=== PATIENT | female | born 1935 | race Caucasian/White ===

== ENCOUNTER → 2017-02-04 | Outpatient (CLI) | payer MEDICARE, OTHER ==
[~2017-02-04] MED LIST: /ESOM40CA PO; /ROPI1TA PO; /WARF25TA OR; ACETAMINOPHEN PO; CALCIUM PO; COUM1TAB17 PO; CRES5TAB PO; FERR325T PO; FISH1000 PO; FISH300C2 PO; FURO40TA2 PO; IRON28TA PO; LEVO100T PO; LOPR50TA PO; OXYC1TAB23 PO; OXYC1TAB30 PO; PERC7.5T8 OR; TYLENOL ES; VALS80CA PO; VITA-113 PO; VITA100027 PO; Vitamin D3 PO; [UNRECOGNIZED DRUG - OTHER] PO
--- NOTE | 2017-02-04 14:02 | REP ---
BILATERAL DIGITAL SCREENING MAMMOGRAM: 02/04/2017 COMPARISON: 02/04/2016, 12/13/2014, 12/11/2013. CLINICAL HISTORY: Screening examination. Patient with prior right breast lumpectomy, radiation and chemotherapy. There is a moderate amount of residual fibroglandular tissue remaining which may reduce the sensitivity of mammography. There are post surgical changes in the upper outer quadrant of the right breast. There is some skin thickening anteriorly. These findings are unchanged. There are some scattered benign calcifications and arterial calcifications in each breast. No dominant masses, suspicious cluster of microcalcifications or secondary signs of malignancy are seen. Surgical clips are seen in the right axilla along with the some axillary and right upper outer quadrant scarring; all of this is stable. IMPRESSION: 1. BIRADS ACR category 2, benign. Benign findings. Stable examination. No evidence of malignancy. No new findings. 2. Recommend followup mammography 1 year. This mammogram was interpreted with the aid of an FDA-approved computer-aided detection system. A. Negative x-ray reports should not delay biopsy if a dominant or clinically suspicious mass is present. B. Four to eight percent of cancers are not identified by x-ray. C. Adenosis and dense breasts may obscure an underlying neoplasm. The patient states she/he had a clinical breast exam in August 2016. The patient letter being requested is M1.
== END ==
LOC: M WHC 09:57
PROVIDERS: ATTEND Internal Medicine Medical Oncology
DX: Z12.31 Encounter for screening mammogram for malignant neoplasm of breast (principal); Z85.3 Personal history of malignant neoplasm of breast; Z92.3 Personal history of irradiation; Z92.21 Personal history of antineoplastic chemotherapy

== ENCOUNTER → 2017-03-23 | Outpatient (REF) | payer MEDICARE, OTHER ==
[2017-03-23 12:40] LABS: ALBUMIN 3.7 GM/DL (3.2-5.2); ALBUMIN/GLOBULIN RATIO 1.16 (1.00-1.93); BILIRUBIN,TOTAL 0.5 MG/DL (0.2-1.0); CALCIUM LEVEL 8.8 MG/DL (8.8-10.2); CREATININE FOR GFR 1.05 MG/DL (0.55-1.02); FREE T4 0.78 NG/DL (0.76-1.46); GLOMERULAR FILTRATION RATE 53.8 (>39); POTASSIUM SERUM 4.5 MEQ/L (3.5-5.1); TOTAL PROTEIN 6.9 GM/DL (6.4-8.2)
== END ==
LOC: M SFHCPLAZ 09:06
PROVIDERS: ATTEND Nurse Practitioner Family
DX: E78.2 Mixed hyperlipidemia (principal); E03.9 Hypothyroidism, unspecified; M85.80 Other specified disorders of bone density and structure, unspecified site

== ENCOUNTER → 2017-03-30 | Outpatient (REF) | payer MEDICARE, OTHER | LOC: M SFHCPLAZ 10:32 | PROVIDERS: ATTEND Nurse Practitioner Family | DX: E78.2 Mixed hyperlipidemia (principal); E03.9 Hypothyroidism, unspecified; E55.9 Vitamin D deficiency, unspecified ==

== ENCOUNTER → 2017-06-21 | Outpatient (REF) | payer MEDICARE, OTHER ==
[2017-06-21 12:29] LABS: ALBUMIN 3.8 GM/DL (3.2-5.2); ALBUMIN/GLOBULIN RATIO 1.27 (1.00-1.93); BILIRUBIN,TOTAL 0.5 MG/DL (0.2-1.0); CALCIUM LEVEL 9.2 MG/DL (8.8-10.2); CREATININE FOR GFR 1.09 MG/DL (0.55-1.02); FREE T4 0.76 NG/DL (0.76-1.46); GLOMERULAR FILTRATION RATE 51.5 (>39); POTASSIUM SERUM 4.5 MEQ/L (3.5-5.1); TOTAL PROTEIN 6.8 GM/DL (6.4-8.2)
== END ==
LOC: M SFHCPLAZ 09:36
PROVIDERS: ATTEND Nurse Practitioner Family
DX: E78.2 Mixed hyperlipidemia (principal); E03.9 Hypothyroidism, unspecified; E55.9 Vitamin D deficiency, unspecified

== ENCOUNTER → 2017-08-04 | Outpatient (REF) | payer MEDICARE, OTHER ==
[2017-08-04 12:06] LABS: FREE T4 0.56 NG/DL (0.76-1.46)
== END ==
LOC: M SFHCPLAZ 09:12
PROVIDERS: ATTEND Family Medicine
DX: E03.9 Hypothyroidism, unspecified (principal)

== ENCOUNTER → 2017-09-21 | Outpatient (REF) | payer MEDICARE, OTHER ==
[2017-09-21 12:36] LABS: MEAN CORPUSCULAR HEMOGLOBIN 30.8 pg (27.0-33.0); MEAN CORPUSCULAR HGB CONC 32.2 g/dl (32.0-36.5); MEAN CORPUSCULAR VOLUME 95.5 fl (80.0-96.0); PLATELET COUNT, AUTOMATED 129 10^3/uL (150-450); RED CELL DISTRIBUTION WIDTH 13.7 % (11.5-14.5)
[2017-09-21 12:54] LABS: FOLATE 9.4 NG/ML
[2017-09-21 13:07] LABS: ALBUMIN 4.1 GM/DL (3.2-5.2); ALBUMIN/GLOBULIN RATIO 1.24 (1.00-1.93); BILIRUBIN,TOTAL 0.5 MG/DL (0.2-1.0); CALCIUM LEVEL 9.8 MG/DL (8.8-10.2); CREATININE FOR GFR 1.05 MG/DL (0.55-1.02); GLOMERULAR FILTRATION RATE 53.7 (>32); MAGNESIUM LEVEL 2.1 MG/DL (1.8-2.4); POTASSIUM SERUM 4.3 MEQ/L (3.5-5.1); TOTAL PROTEIN 7.4 GM/DL (6.4-8.2)
[2017-09-21 13:16] LABS: FREE T4 0.71 NG/DL (0.76-1.46)
== END ==
LOC: M SFHCPLAZ 09:56
PROVIDERS: ATTEND Nurse Practitioner Family
DX: Z00.00 Encounter for general adult medical examination without abnormal findings (principal); G31.84 Mild cognitive impairment of uncertain or unknown etiology; E03.9 Hypothyroidism, unspecified; E55.9 Vitamin D deficiency, unspecified

== ENCOUNTER → 2017-10-20 | Outpatient (REF) | payer MEDICARE, OTHER ==
[2017-10-20 14:28] LABS: BASO % 0.5 % (0.0-1.0); EOS # 0.1 10^3/uL (0.0-0.50); EOS % 1.6 % (0.0-3.0); IMMATURE GRANULOCYTE % 0.4 % (0-0); LYMPH # 1.3 10^3/uL (1.5-4.5); LYMPH % 22.4 % (24.0-44.0); MEAN CORPUSCULAR HEMOGLOBIN 31.1 pg (27.0-33.0); MEAN CORPUSCULAR HGB CONC 32.7 g/dl (32.0-36.5); MEAN CORPUSCULAR VOLUME 95.1 fl (80.0-96.0); MONO # 0.4 10^3/uL (0.0-0.8); MONO % 7.4 % (0.0-5.0); NEUTROPHILS # 3.8 10^3/uL (1.8-7.7); NEUTROPHILS % 67.7 % (36.0-66.0); PLATELET COUNT, AUTOMATED 151 10^3/uL (150-450); RED CELL DISTRIBUTION WIDTH 13.8 % (11.5-14.5); WHITE BLOOD COUNT 5.6 10^3/uL (4.0-10.0)
[2017-10-20 14:34] LABS: VITAMIN B12 LEVEL 185 PG/ML
[2017-10-20 14:35] LABS: FOLATE 8.8 NG/ML
[2017-10-20 14:52] LABS: ERYTHROCYTE SEDIMENTATION RATE 44 mm/hr (0-30)
== END ==
LOC: M LABDRAW1 12:38
PROVIDERS: ATTEND Physician Assistant Medical
DX: R51 Headache (principal); R53.83 Other fatigue; R41.3 Other amnesia; Z79.899 Other long term (current) drug therapy

== ENCOUNTER → 2018-01-07 | Outpatient (REF) | payer MEDICARE, OTHER ==
[2018-01-07 13:48] LABS: HEMATOCRIT 37.7 % (36.0-47.0); HEMOGLOBIN 12.1 g/dl (12.0-16.0); MEAN CORPUSCULAR HGB CONC 32.1 g/dl (32.0-36.5); MEAN CORPUSCULAR VOLUME 93.3 fl (80.0-96.0); PLATELET COUNT, AUTOMATED 225 10^3/uL (150-450); RED BLOOD COUNT 4.04 10^6/uL (4.00-5.40); RED CELL DISTRIBUTION WIDTH 13.4 % (11.5-14.5); WHITE BLOOD COUNT 5.6 10^3/uL (4.0-10.0)
[2018-01-07 14:08] LABS: TOTAL 25(OH) VITAMIN D 15.6 NG/ML (30.0-100.0)
[2018-01-07 14:09] LABS: ALBUMIN/GLOBULIN RATIO 1.21 (1.00-1.93); ALKALINE PHOSPHATASE 86 U/L (45-117); ALT/SGPT 19 U/L (12-78); ANION GAP 6 MEQ/L (8-16); AST/SGOT 19 U/L (7-37); BILIRUBIN,TOTAL 0.4 MG/DL (0.2-1.0); BLOOD UREA NITROGEN 13 MG/DL (7-18); CALCIUM LEVEL 9.3 MG/DL (8.8-10.2); CARBON DIOXIDE LEVEL 30 MEQ/L (21-32); CHLORIDE LEVEL 106 MEQ/L (98-107); CHOLESTEROL LEVEL 284 MG/DL (<200); CHOLESTEROL RISK RATIO 6.454 (<5); CREATININE FOR GFR 1.02 MG/DL (0.55-1.30); FOLATE 7.7 NG/ML; FREE T4 0.57 NG/DL (0.76-1.46); GLOMERULAR FILTRATION RATE 55.5 (>32); GLUCOSE, FASTING 93 MG/DL (70-100); HDL CHOLESTEROL 44 MG/DL (>40); LDL CHOLESTEROL 189.6 MG/DL (<100); NON-HDL-C 240 MG/DL; POTASSIUM SERUM 4.5 MEQ/L (3.5-5.1); SODIUM LEVEL 142 MEQ/L (136-145); TOTAL PROTEIN 7.3 GM/DL (6.4-8.2); TRIGLYCERIDES LEVEL 252 MG/DL (<150); VITAMIN B12 LEVEL 225 PG/ML
== END ==
LOC: M SFHCPLAZ 10:04
DX: Z00.00 Encounter for general adult medical examination without abnormal findings (principal); E53.8 Deficiency of other specified B group vitamins; I10 Essential (primary) hypertension; E55.9 Vitamin D deficiency, unspecified; E78.2 Mixed hyperlipidemia
CPT/HCPCS: 82746

== ENCOUNTER → 2018-04-08 | Outpatient (CLI) | payer MEDICARE, OTHER | LOC: M WHC 12:57 | DX: Z12.31 Encounter for screening mammogram for malignant neoplasm of breast (principal); E03.9 Hypothyroidism, unspecified; Z78.0 Asymptomatic menopausal state; E55.9 Vitamin D deficiency, unspecified; Z85.3 Personal history of malignant neoplasm of breast; E66.9 Obesity, unspecified; Z92.3 Personal history of irradiation; Z68.34 Body mass index [BMI] 34.0-34.9, adult; Z92.21 Personal history of antineoplastic chemotherapy; Z79.810 Long term (current) use of selective estrogen receptor modulators (SERMs); Z92.0 Personal history of contraception | CPT/HCPCS: 77067; 82746 ==

== ENCOUNTER → 2018-04-08 | Outpatient (REF) | payer MEDICARE, OTHER ==
[2018-04-08 16:04] LABS: FREE T4 1.83 NG/DL (0.76-1.46); THYROID STIMULATING HORMONE 0.084 uIU/ML (0.358-3.740)
[2018-04-11 10:29] LABS: FOLATE 10.8 NG/ML; VITAMIN B12 LEVEL 200 PG/ML
== END ==
LOC: M SFHCPLAZ 09:59
DX: E03.9 Hypothyroidism, unspecified (principal); E55.9 Vitamin D deficiency, unspecified; E66.9 Obesity, unspecified; Z68.34 Body mass index [BMI] 34.0-34.9, adult
CPT/HCPCS: 82746

== ENCOUNTER → 2018-06-06 | Outpatient (REF) | payer MEDICARE, OTHER ==
[2018-06-06 12:10] LABS: HEMATOCRIT 35.1 % (36.0-47.0); HEMOGLOBIN 11.5 g/dl (12.0-15.5); MEAN CORPUSCULAR HEMOGLOBIN 29.5 pg (27.0-33.0); MEAN CORPUSCULAR HGB CONC 32.8 g/dl (32.0-36.5); PLATELET COUNT, AUTOMATED 198 10^3/uL (150-450); RED CELL DISTRIBUTION WIDTH 13.5 % (11.5-14.5); WHITE BLOOD COUNT 5.7 10^3/uL (4.0-10.0)
[2018-06-06 12:53] LABS: TOTAL 25(OH) VITAMIN D 17.8 NG/ML (30.0-100.0)
[2018-06-08 13:11] LABS: FREE T4 1.46 NG/DL (0.76-1.46); THYROID STIMULATING HORMONE 0.787 uIU/ML (0.358-3.740)
== END ==
LOC: M SFHCPLAZ 10:01
DX: E53.8 Deficiency of other specified B group vitamins (principal); E55.9 Vitamin D deficiency, unspecified; E03.9 Hypothyroidism, unspecified
CPT/HCPCS: 84443

== ENCOUNTER → 2018-08-04 | Outpatient (REF) | payer MEDICARE, OTHER ==
[2018-08-04 13:14] LABS: HEMATOCRIT 39.8 % (36.0-47.0); HEMOGLOBIN 12.8 g/dl (12.0-15.5); MEAN CORPUSCULAR HEMOGLOBIN 29.2 pg (27.0-33.0); MEAN CORPUSCULAR HGB CONC 32.2 g/dl (32.0-36.5); MEAN CORPUSCULAR VOLUME 90.9 fl (80.0-96.0); PLATELET COUNT, AUTOMATED 169 10^3/uL (150-450); RED BLOOD COUNT 4.38 10^6/uL (4.00-5.40); RED CELL DISTRIBUTION WIDTH 15.2 % (11.5-14.5); WHITE BLOOD COUNT 6.2 10^3/uL (4.0-10.0)
[2018-08-04 13:24] LABS: ANION GAP 11 MEQ/L (8-16); BLOOD UREA NITROGEN 15 MG/DL (7-18); CALCIUM LEVEL 9.9 MG/DL (8.8-10.2); CARBON DIOXIDE LEVEL 28 MEQ/L (21-32); CHLORIDE LEVEL 106 MEQ/L (98-107); CREATININE FOR GFR 1.24 MG/DL (0.55-1.30); FREE T4 0.27 NG/DL (0.76-1.46); GLOMERULAR FILTRATION RATE 44.2 (>32); GLUCOSE, FASTING 94 MG/DL (70-100); POTASSIUM SERUM 4.5 MEQ/L (3.5-5.1); SODIUM LEVEL 145 MEQ/L (136-145)
[2018-08-04 13:45] LABS: FOLATE 7.6 NG/ML
[2018-08-04 13:58] LABS: TOTAL 25(OH) VITAMIN D 17.8 NG/ML (30.0-100.0)
== END ==
LOC: M SFHCPLAZ 10:33
DX: E53.8 Deficiency of other specified B group vitamins (principal); E03.9 Hypothyroidism, unspecified; I10 Essential (primary) hypertension; E55.9 Vitamin D deficiency, unspecified
CPT/HCPCS: 82746

== ENCOUNTER → 2019-01-18 | Outpatient (REF) | payer MEDICARE, OTHER ==
[~2019-01-18] MED LIST changes: +LEVO150T7 OR; +ROPI2TAB OR; +ROSU10TA5 OR
[2019-01-18 13:16] LABS: ALT/SGPT 24 U/L (12-78); BILIRUBIN,TOTAL 0.4 MG/DL (0.2-1.0); BLOOD UREA NITROGEN 17 MG/DL (7-18); CALCIUM LEVEL 9.1 MG/DL (8.8-10.2); CARBON DIOXIDE LEVEL 28 MEQ/L (21-32); CHLORIDE LEVEL 105 MEQ/L (98-107); CREATININE FOR GFR 0.87 MG/DL (0.55-1.30); FOLATE 9.4 NG/ML; FREE T4 1.54 NG/DL (0.76-1.46); GLOMERULAR FILTRATION RATE > 60.0 (>32); GLUCOSE, FASTING 99 MG/DL (70-100); POTASSIUM SERUM 4.5 MEQ/L (3.5-5.1); SODIUM LEVEL 142 MEQ/L (136-145); TOTAL PROTEIN 7.2 GM/DL (6.4-8.2); VITAMIN B12 LEVEL 208 PG/ML
== END ==
LOC: M SFHCPLAZ 09:23
PROVIDERS: ATTEND Nurse Practitioner Family
DX: E03.9 Hypothyroidism, unspecified (principal); G31.84 Mild cognitive impairment of uncertain or unknown etiology; E55.9 Vitamin D deficiency, unspecified; E53.8 Deficiency of other specified B group vitamins; E66.9 Obesity, unspecified; Z68.39 Body mass index [BMI] 39.0-39.9, adult
CPT/HCPCS: 36415; 80053; 82306; 82607; 82746; 84439; 84443; G0463

== ENCOUNTER → 2019-04-14 | Outpatient (REF) | payer MEDICARE, OTHER ==
[~2019-04-14] MED LIST changes: -/ESOM40CA PO; -/ROPI1TA PO; -/WARF25TA OR; +COUM1TAB18 OR; +NEXI1CAP3 PO; +REQU1TAB16 PO
[2019-04-14 11:29] LABS: FREE T4 1.28 NG/DL (0.76-1.46); THYROID STIMULATING HORMONE 0.162 uIU/ML (0.358-3.740); TOTAL 25(OH) VITAMIN D 8.4 NG/ML (30.0-100.0)
== END ==
LOC: M SFHCPLAZ 09:41
PROVIDERS: ATTEND Nurse Practitioner Family
DX: E03.9 Hypothyroidism, unspecified (principal); E55.9 Vitamin D deficiency, unspecified; E53.8 Deficiency of other specified B group vitamins

== ENCOUNTER → 2019-06-06 | Outpatient (REF) | payer MEDICARE, OTHER ==
[~2019-06-06] MED LIST changes: -ROSU10TA5 OR; +ROSU10TA6 OR
[2019-06-06 12:13] LABS: CHOLESTEROL RISK RATIO 4.59 (<5); FREE T4 0.73 NG/DL (0.76-1.46); THYROID STIMULATING HORMONE 32.4 uIU/ML (0.358-3.740)
== END ==
LOC: M SFHCPLAZ 09:06
PROVIDERS: ATTEND Family Medicine
DX: E03.9 Hypothyroidism, unspecified (principal); E78.2 Mixed hyperlipidemia

== ENCOUNTER → 2019-08-01 | Outpatient (REF) | payer MEDICARE, OTHER ==
[2019-08-01 13:42] LABS: FREE T4 0.98 NG/DL (0.76-1.46); THYROID STIMULATING HORMONE 50.1 uIU/ML (0.358-3.740)
== END ==
LOC: M SFHCPLAZ 10:44
PROVIDERS: ATTEND Nurse Practitioner Family
DX: E03.9 Hypothyroidism, unspecified (principal)
CPT/HCPCS: 36415; 84439; 84443; G0463

== ENCOUNTER → 2020-03-13 | Outpatient (REF) | payer MEDICARE, OTHER ==
[~2020-03-13] MED LIST changes: -ROPI2TAB OR; +ROPI2TAB3 OR
[2020-03-13 14:20] LABS: BLOOD UREA NITROGEN 12 MG/DL (7-18); CALCIUM LEVEL 10.4 MG/DL (8.8-10.2); CARBON DIOXIDE LEVEL 29 MEQ/L (21-32); CHLORIDE LEVEL 105 MEQ/L (98-107); CREATININE FOR GFR 0.79 MG/DL (0.55-1.30); FOLATE 8.1 NG/ML; FREE T4 1.34 NG/DL (0.76-1.46); GLOMERULAR FILTRATION RATE > 60.0 (>32); GLUCOSE, FASTING 94 MG/DL (70-100); POTASSIUM SERUM 5.2 MEQ/L (3.5-5.1); SODIUM LEVEL 141 MEQ/L (136-145); TOTAL 25(OH) VITAMIN D 20.2 NG/ML (30.0-100.0); VITAMIN B12 LEVEL 184 PG/ML
== END ==
LOC: M SFHCPLAZ 10:38
PROVIDERS: ATTEND Nurse Practitioner Family
DX: E03.9 Hypothyroidism, unspecified (principal); I10 Essential (primary) hypertension; E53.8 Deficiency of other specified B group vitamins; E55.9 Vitamin D deficiency, unspecified
CPT/HCPCS: 36415; 80048; 82306; 82607; 82746; 84439; 84443; G0463

== ENCOUNTER 2020-09-01 11:16 | Emergency (ER) | payer MEDICARE, OTHER ==
[~2020-09-01] VITALS: Ht 167.6 cm; Wt 74.7 kg
[2020-09-01] MEDS ORDERED: CYCLOBENZAPRINE 5MG TABLET PO ONE (11:45)
[2020-09-01] MEDS ORDERED: ACETAMINOPHEN 500 MG TAB PO ONE (11:45)
--- NOTE | 2020-09-01 12:22 | REP ---
INDICATION: left sided neck pain COMPARISON: None. TECHNIQUE: Axial noncontrast images from the skull base to the thoracic inlet with coronal and sagittal re-formations This CT examination was performed using the following dose reduction techniques: Automated exposure control, adjustment of mA and/or kv according to the patient's size, and use of iterative reconstruction technique. FINDINGS: Marked advanced degenerative disc osteophyte complexes are identified primarily involving C4-5 through C7-T1. Diffuse facet arthropathy is also noted extending from the C2-3 level through the upper thoracic level. There is no evidence for acute fracture/compression injury or acute subluxation. Chronic canal stenosis at C4-5 is appreciated. Paravertebral soft tissues are grossly normal. IMPRESSION: Marked advanced multilevel degenerative disc osteophyte complexes. No acute fracture/compression injury or acute subluxation. <Electronically signed by Dennis Rojas > 09/01/20 [id number]
[2020-09-01] MEDS ORDERED: CYCL5TAB PO (12:59)
[2020-09-01 13:15] VITALS: BP 168/78
== END 2020-09-01 13:20 | disposition home or self-care (01) ==
LOC: M ED 11:16
DX: M54.2 Cervicalgia (principal); I10 Essential (primary) hypertension; E03.9 Hypothyroidism, unspecified; F03.90 Unspecified dementia, unspecified severity, without behavioral disturbance, psychotic disturbance, mood disturbance, and anxiety; K21.9 Gastro-esophageal reflux disease without esophagitis; G25.81 Restless legs syndrome; G25.0 Essential tremor; Z79.899 Other long term (current) drug therapy; Z79.890 Hormone replacement therapy; Z88.0 Allergy status to penicillin; Z88.1 Allergy status to other antibiotic agents; Z88.2 Allergy status to sulfonamides; Z88.5 Allergy status to narcotic agent

== ENCOUNTER → 2020-09-10 | Outpatient (REF) | payer MEDICARE, OTHER ==
[~2020-09-10] MED LIST changes: +CYCL5TAB PO
[2020-09-10 16:19] LABS: CALCIUM LEVEL 10.4 MG/DL (8.8-10.2); CREATININE FOR GFR 1.08 MG/DL (0.55-1.30); FOLATE 9.4 NG/ML; FREE T4 0.81 NG/DL (0.76-1.46); GLOMERULAR FILTRATION RATE 51.6 (>32); POTASSIUM SERUM 4.6 MEQ/L (3.5-5.1); THYROID STIMULATING HORMONE 20.8 uIU/ML (0.358-3.740); TOTAL 25(OH) VITAMIN D 21.2 NG/ML (30.0-100.0)
== END ==
LOC: M SFHCPLAZ 11:27
PROVIDERS: ATTEND Nurse Practitioner Family
DX: E03.9 Hypothyroidism, unspecified (principal); I10 Essential (primary) hypertension; E55.9 Vitamin D deficiency, unspecified; E53.8 Deficiency of other specified B group vitamins
CPT/HCPCS: 36415; 80048; 82306; 82607; 82746; 84439; 84443; G0463

== ENCOUNTER → 2021-03-11 | Outpatient (REF) | payer MEDICARE, OTHER ==
[2021-03-11 15:03] LABS: ALBUMIN 3.9 GM/DL (3.2-5.2); ALT/SGPT 42 U/L (12-78); BILIRUBIN,TOTAL 0.9 MG/DL (0.2-1.0); BLOOD UREA NITROGEN 32 MG/DL (7-18); CALCIUM LEVEL 10.7 MG/DL (8.8-10.2); CARBON DIOXIDE LEVEL 26 MEQ/L (21-32); CHLORIDE LEVEL 109 MEQ/L (98-107); CREATININE FOR GFR 1.01 MG/DL (0.55-1.30); FOLATE 9.9 NG/ML; FREE T4 > 8.00 NG/DL (0.76-1.46); GLOMERULAR FILTRATION RATE 55.7 (>32); GLUCOSE, FASTING 119 MG/DL (70-100); POTASSIUM SERUM 4.8 MEQ/L (3.5-5.1); SODIUM LEVEL 143 MEQ/L (136-145); THYROID STIMULATING HORMONE < 0.005 uIU/ML (0.358-3.740); TOTAL 25(OH) VITAMIN D 22.1 NG/ML (30.0-100.0); TOTAL PROTEIN 7.5 GM/DL (6.4-8.2); VITAMIN B12 LEVEL 191 PG/ML
== END ==
LOC: M SFHCPLAZ 11:07
PROVIDERS: ATTEND Nurse Practitioner Family
DX: E55.9 Vitamin D deficiency, unspecified (principal); I10 Essential (primary) hypertension; E03.9 Hypothyroidism, unspecified; E53.8 Deficiency of other specified B group vitamins
CPT/HCPCS: 36415; 80053; 82306; 82607; 82746; 84439; 84443; G0463

== ENCOUNTER → 2021-04-22 | Outpatient (REF) | payer MEDICARE, OTHER ==
[2021-04-22 14:50] LABS: HEMATOCRIT 34.2 % (36.0-47.0); HEMOGLOBIN 10.6 g/dl (12.0-15.5); MEAN CORPUSCULAR VOLUME 93.4 fl (80.0-96.0); PLATELET COUNT, AUTOMATED 221 10^3/uL (150-450); RED BLOOD COUNT 3.66 10^6/uL (4.00-5.40); WHITE BLOOD COUNT 5.1 10^3/uL (4.0-10.0)
[2021-04-22 15:07] LABS: FOLATE 5.6 NG/ML; FREE T4 2.14 NG/DL (0.76-1.46); THYROID STIMULATING HORMONE < 0.005 uIU/ML (0.358-3.740); VITAMIN B12 LEVEL 277 PG/ML
== END ==
LOC: M PLALAB 10:00
PROVIDERS: ATTEND Nurse Practitioner Family
DX: E53.8 Deficiency of other specified B group vitamins (principal); E03.9 Hypothyroidism, unspecified
CPT/HCPCS: 36415; 82607; 82746; 84439; 84443; 85027; 96372; J3420

== ENCOUNTER → 2021-07-08 | Outpatient (CLI) | payer MEDICARE, OTHER ==
[2021-07-08 14:32] LABS: FREE T4 1.97 NG/DL (0.76-1.46); TOTAL 25(OH) VITAMIN D 98.4 NG/ML (30.0-100.0); VITAMIN B12 LEVEL > 2000 PG/ML
== END ==
LOC: M PLALAB 09:58
PROVIDERS: ATTEND Nurse Practitioner Family
DX: E03.9 Hypothyroidism, unspecified (principal); E55.9 Vitamin D deficiency, unspecified; E53.8 Deficiency of other specified B group vitamins
CPT/HCPCS: 36415; 82306; 82607; 82746; 84439; 84443; 96372; J3420

== ENCOUNTER → 2021-09-01 | Outpatient (CLI) | payer MEDICARE, OTHER ==
[2021-09-01 17:44] LABS: FREE T4 1.36 NG/DL (0.76-1.46); THYROID STIMULATING HORMONE 1.82 uIU/ML (0.358-3.740)
== END ==
LOC: M WUC 10:30
PROVIDERS: ATTEND Nurse Practitioner Family
DX: E03.9 Hypothyroidism, unspecified (principal)

== ENCOUNTER → 2021-12-09 | Outpatient (CLI) | payer MEDICARE, OTHER ==
[2021-12-09 18:08] LABS: ALBUMIN 3.8 GM/DL (3.2-5.2); ALT/SGPT 16 U/L (12-78); BILIRUBIN,TOTAL 0.4 MG/DL (0.2-1.0); BLOOD UREA NITROGEN 13 MG/DL (7-18); CALCIUM LEVEL 9.7 MG/DL (8.8-10.2); CARBON DIOXIDE LEVEL 30 MEQ/L (21-32); CHLORIDE LEVEL 104 MEQ/L (98-107); CREATININE FOR GFR 1.13 MG/DL (0.55-1.30); FREE T4 1.17 NG/DL (0.76-1.46); GLOMERULAR FILTRATION RATE 48.8 (>32); GLUCOSE, FASTING 91 MG/DL (70-100); SODIUM LEVEL 139 MEQ/L (136-145); TOTAL PROTEIN 7.1 GM/DL (6.4-8.2)
[2021-12-09 18:10] LABS: TOTAL 25(OH) VITAMIN D 25.2 NG/ML (30.0-100.0); VITAMIN B12 LEVEL > 2000 PG/ML
[2021-12-09 18:11] LABS: FOLATE 7.4 NG/ML
== END ==
LOC: M PLALAB 14:28
PROVIDERS: ATTEND Nurse Practitioner Adult Health
DX: E03.9 Hypothyroidism, unspecified (principal); F02.81 Dementia in other diseases classified elsewhere, unspecified severity, with behavioral disturbance; E55.9 Vitamin D deficiency, unspecified; E53.8 Deficiency of other specified B group vitamins